=== PATIENT | female | born 1995 | race Asian ===

== ENCOUNTER 2018-06-24 09:24 | Emergency (ER) | payer SELFPAY ==
[~2018-06-24] VITALS: Ht 149.9 cm; Wt 51.0 kg
[2018-06-24] MEDS ORDERED: SODIUM CHLORIDE 0.9% 1,000ML IVBOLUS ONE ×2 (10:00→12:30)
[2018-06-24 10:16] LABS: BASOPHILS # (AUTO) 0.06 x10^3/uL (0-0.1); BASOPHILS % (AUTO) 1 % (0-1); EOSINOPHILS # (AUTO) 0.27 x10^3/uL (0-0.4); EOSINOPHILS % (AUTO) 2 % (1-7); LYMPHOCYTES # (AUTO) 2.24 x10^3/uL (1-3.4); LYMPHOCYTES % (AUTO) 18 % (22-44); MD NO; MEAN CORPUSCULAR HEMOGLOBIN 28.5 pg (27.0-34.8); MEAN CORPUSCULAR HGB CONC 34.2 g/dL (32.4-35.8); MEAN CORPUSCULAR VOLUME 83.3 fL (80-100); MEAN PLATELET VOLUME 7.4 fL (7.4-10.4); MONOCYTES # (AUTO) 0.49 x10^3/uL (0.2-0.8); MONOCYTES % (AUTO) 4 % (2-9); NEUTROPHILS # (AUTO) 9.28 x10^3/uL (1.8-6.8); NEUTROPHILS % (AUTO) 75 % (42-75); PLATELET COUNT 379 x10^3/uL (130-400); RED BLOOD COUNT 5.45 x10^6/uL (3.82-5.3); RED CELL DISTRIBUTION WIDTH 12.9 % (9.6-15.2)
[2018-06-24 10:21] LABS: ALANINE AMINOTRANSFERASE 29 U/L (12-78); ALBUMIN 3.4 g/dL (3.4-5.0); ANION GAP 11 mmol/L (5-15); CALCIUM 8.9 mg/dL (8.5-10.1); CHLORIDE 109 mmol/L (98-107); CREATININE 0.43 mg/dL (0.55-1.02)
[2018-06-24 10:24] LABS: ALKALINE PHOSPHATASE 172 U/L (45-117); BILIRUBIN,TOTAL 0.6 mg/dL (0.2-1.0); CREATINE KINASE, TOTAL 72 U/L (26-192); TOTAL PROTEIN 7.2 g/dL (6.4-8.2)
[2018-06-24] MEDS ORDERED: SODIUM CHLORIDE FLUSH 10ML SYR IVF ONE (11:00)
[2018-06-24] MEDS ORDERED: POTASSIUM CHLORIDE 10% 40 MEQ/30 ML UDC PO ONE (11:30)
[2018-06-24] MEDS ORDERED: OMNIPAQUE 350 MG/ML, 100ML BOTTLE ONE (11:31)
[2018-06-24 12:35] LABS: FREE T4 (FREE THYROXINE) 5.47 ng/dL (0.76-1.46)
[2018-06-24 12:36] LABS: THYROID STIMULATING HORMONE < 0.005 mIU/L (0.358-3.740)
[2018-06-24] MEDS ORDERED: METOPROLOL TARTRATE 50 MG TABLET ONE (13:17)
[2018-06-24] MEDS ORDERED: METOPROLOL TARTRATE 50 MG TABLET PO ONE (13:30)
[2018-06-24 14:36] VITALS: BP 100/44
== END 2018-06-24 14:39 | disposition home or self-care (01) ==
LOC: ED 14:33
DX: E87.6 Hypokalemia (principal); E05.00 Thyrotoxicosis with diffuse goiter without thyrotoxic crisis or storm; R00.0 Tachycardia, unspecified
CPT/HCPCS: 36415; 71275; 80053; 82550; 84439; 84443; 85025; 85379; 93005; 99285; J7030; Q9967